=== PATIENT | female | born 1970 | race Caucasian/White ===

== ENCOUNTER 2022-05-11 09:47 | Outpatient (CLI) | payer BC, SELFPAY ==
[2022-05-11 13:34] LABS: Albumin* 4.6 g/dL (3.3-5.0); Chloride* 104 mmol/L (96-114); Potassium* 4.9 mmol/L (3.6-5.1); Sodium* 141 mmol/L (135-149)
[2022-05-11 13:36] LABS: Cholesterol* 129 mg/dL (90-199)
[2022-05-11 13:37] LABS: Alanine Aminotransferase* 48 U/L (4-35); Alkaline Phosphatase* 103 U/L (40-150); Aspartate Amino Transferase* 34 U/L (12-35); Bilirubin Total* 0.4 mg/dL (0.1-1.5); Blood Urea Nitrogen* 17 mg/dL (7-30); Carbon Dioxide* 28 mmol/L (20-32); Creatinine* 0.8 mg/dL (0.5-1.5); Estimated Glomerular Filt Rate 89 ml/min; Glucose* 105 mg/dL (60-115); Total Protein* 6.9 g/dL (6.0-8.3); Triglycerides* 116 mg/dL (40-149)
[2022-05-11 13:38] LABS: Calcium* 9.4 mg/dL (8.4-10.6); HDL Cholesterol* 39 mg/dL (>=50); LDL Cholesterol Calculated 67 mg/dL (<100)
== END 2022-05-11 09:48 | disposition home or self-care (01) ==
PROVIDERS: PCP Emergency Medicine; Visit Provider Emergency Medicine
DX: Z00.00 Encounter for general adult medical examination without abnormal findings (principal); E66.9 Obesity, unspecified; R53.83 Other fatigue; R63.5 Abnormal weight gain; Z13.6 Encounter for screening for cardiovascular disorders
CPT/HCPCS: 80053; 80061; 84443

== ENCOUNTER 2023-03-21 09:16 | Outpatient (CLI) | payer BC, SELFPAY | END 2023-03-21 09:17 | disposition home or self-care (01) | PROVIDERS: PCP Emergency Medicine; Visit Provider Emergency Medicine | DX: E78.5 Hyperlipidemia, unspecified (principal); E66.9 Obesity, unspecified; E78.1 Pure hyperglyceridemia; R74.01 Elevation of levels of liver transaminase levels; R73.03 Prediabetes; E01.0 Iodine-deficiency related diffuse (endemic) goiter; Z71.3 Dietary counseling and surveillance | CPT/HCPCS: 80053; 80061; 84443 ==

== ENCOUNTER 2023-05-07 09:00 | Outpatient (CLI) | payer BC, SELFPAY | END 2023-05-07 09:01 | disposition home or self-care (01) | LOC: NFLDREF 05-09 11:42 | PROVIDERS: PCP Emergency Medicine; Referring Provider Emergency Medicine; Visit Provider Emergency Medicine | DX: Z00.00 Encounter for general adult medical examination without abnormal findings (principal); R73.03 Prediabetes; Z71.3 Dietary counseling and surveillance; E78.1 Pure hyperglyceridemia; R74.01 Elevation of levels of liver transaminase levels; E01.0 Iodine-deficiency related diffuse (endemic) goiter | CPT/HCPCS: 82565 ==

== ENCOUNTER 2024-03-24 11:24 | Outpatient (CLI) | payer BC, SELFPAY | END 2024-03-24 11:25 | disposition home or self-care (01) | LOC: NFLDREF 03-25 08:50 | PROVIDERS: PCP Emergency Medicine; Referring Provider Emergency Medicine; Visit Provider Emergency Medicine | DX: Z01.818 Encounter for other preprocedural examination (principal); R73.03 Prediabetes; R53.83 Other fatigue; E78.1 Pure hyperglyceridemia; R74.01 Elevation of levels of liver transaminase levels; E66.9 Obesity, unspecified; E01.0 Iodine-deficiency related diffuse (endemic) goiter; E78.5 Hyperlipidemia, unspecified | CPT/HCPCS: 80048; 80061; 84443 ==